=== PATIENT | female | born 1970 | race Caucasian/White ===

== ENCOUNTER → 2017-07-14 | Outpatient (REF) ==
[~2017-07-14] MED LIST: MULT1CHW26 PO
== END ==
LOC: M LAB 14:12
PROVIDERS: ATTEND Nurse Practitioner Adult Health
DX: Z00.00 Encounter for general adult medical examination without abnormal findings (principal)

== ENCOUNTER 2017-09-07 09:59 | Emergency (ER) | payer OTHER ==
[2017-09-07] MEDS: NS 1,000 ML IV (11:20)
[2017-09-07 11:27] LABS: BASO % 0.4 % (0.0-1.0); EOS # 0.1 10^3/uL (0.0-0.50); EOS % 1.6 % (0.0-3.0); HEMATOCRIT 39.5 % (36.0-47.0); HEMOGLOBIN 13.4 g/dl (12.0-16.0); IMMATURE GRANULOCYTE % 0.3 % (0-0); LYMPH # 1.7 10^3/uL (1.5-4.5); LYMPH % 23.1 % (24.0-44.0); MEAN CORPUSCULAR HEMOGLOBIN 29.9 pg (27.0-33.0); MEAN CORPUSCULAR HGB CONC 33.9 g/dl (32.0-36.5); MEAN CORPUSCULAR VOLUME 88.2 fl (80.0-96.0); MONO # 0.4 10^3/uL (0.0-0.8); MONO % 5.5 % (0.0-5.0); NEUTROPHILS # 5.2 10^3/uL (1.8-7.7); NEUTROPHILS % 69.1 % (36.0-66.0); PLATELET COUNT, AUTOMATED 217 10^3/uL (150-450); RED BLOOD COUNT 4.48 10^6/uL (4.00-5.40); RED CELL DISTRIBUTION WIDTH 12.6 % (11.5-14.5); WHITE BLOOD COUNT 7.5 10^3/uL (4.0-10.0)
[2017-09-07 11:42] LABS: D-DIMER QUANT 533.4 ng/ml (<500)
[2017-09-07 11:49] LABS: CPK CREATINE PHOSPHOKINASE 57 U/L (26-192); TROPONIN I < 0.02 NG/ML (< 0.10)
[2017-09-07 11:51] LABS: MB/CK RELATIVE INDEX 1.75 (< OR =4)
[2017-09-07 11:55] LABS: ANION GAP 5 MEQ/L (8-16); BLOOD UREA NITROGEN 16 MG/DL (7-18); CALCIUM LEVEL 9.1 MG/DL (8.5-10.1); CARBON DIOXIDE LEVEL 30 MEQ/L (21-32); CHLORIDE LEVEL 107 MEQ/L (98-107); CREATININE FOR GFR 0.73 MG/DL (0.55-1.02); GLOMERULAR FILTRATION RATE > 60.0 (>58); GLUCOSE, FASTING 84 MG/DL (70-105); MAGNESIUM LEVEL 2.1 MG/DL (1.8-2.4); POTASSIUM SERUM 4.3 MEQ/L (3.5-5.1); SODIUM LEVEL 142 MEQ/L (136-145)
[2017-09-07] MEDS ORDERED: ISOVUE-370 76% 100ML VIAL (Q9967) As Ordered (12:28)
[2017-09-07 16:32] LABS: CPK CREATINE PHOSPHOKINASE 51 U/L (26-192); MB/CK RELATIVE INDEX 1.96 (< OR =4); TROPONIN I < 0.02 NG/ML (< 0.10)
== END 2017-09-07 17:02 | disposition home or self-care (01) ==
LOC: M ED 09:59
DX: R55 Syncope and collapse (principal); J45.909 Unspecified asthma, uncomplicated; Z88.8 Allergy status to other drugs, medicaments and biological substances; Z98.0 Intestinal bypass and anastomosis status; Z86.69 Personal history of other diseases of the nervous system and sense organs; Z98.890 Other specified postprocedural states
CPT/HCPCS: Q9967

== ENCOUNTER → 2018-01-05 | Outpatient (CLI) | payer OTHER | LOC: M SLEEP HO 08:53 | DX: R40.0 Somnolence (principal); R06.83 Snoring | CPT/HCPCS: G0399 ==

== ENCOUNTER 2018-02-10 18:31 | Emergency (ER) | payer OTHER ==
[2018-02-10] MEDS: NORCO, ANEXSIA 5/325MG TABLET (HYDROcodone/ACETAMINOPHEN) PO (22:52)
== END 2018-02-10 23:06 | disposition home or self-care (01) ==
LOC: M ED 18:31
DX: S50.01XA Contusion of right elbow, initial encounter (principal); S63.502A Unspecified sprain of left wrist, initial encounter; S80.02XA Contusion of left knee, initial encounter; W01.0XXA Fall on same level from slipping, tripping and stumbling without subsequent striking against object, initial encounter; Y92.89 Other specified places as the place of occurrence of the external cause; R56.9 Unspecified convulsions; Z79.899 Other long term (current) drug therapy; F17.200 Nicotine dependence, unspecified, uncomplicated; Z98.84 Bariatric surgery status
CPT/HCPCS: 73080

== ENCOUNTER 2018-02-12 12:40 | Emergency (ER) | payer OTHER | END 2018-02-12 17:29 | disposition home or self-care (01) | LOC: M ED 12:40 | DX: S89.92XA Unspecified injury of left lower leg, initial encounter (principal); W01.0XXA Fall on same level from slipping, tripping and stumbling without subsequent striking against object, initial encounter; Y92.89 Other specified places as the place of occurrence of the external cause; J45.909 Unspecified asthma, uncomplicated; K21.9 Gastro-esophageal reflux disease without esophagitis; I10 Essential (primary) hypertension; R56.9 Unspecified convulsions; Z98.84 Bariatric surgery status; Z88.8 Allergy status to other drugs, medicaments and biological substances; Z79.899 Other long term (current) drug therapy | CPT/HCPCS: 99283 ==

== ENCOUNTER → 2018-02-16 | Outpatient (CLI) | payer OTHER | LOC: M SLEEP 20:16 | DX: G47.33 Obstructive sleep apnea (adult) (pediatric) (principal); G47.61 Periodic limb movement disorder | CPT/HCPCS: 95811 ==

== ENCOUNTER → 2018-03-22 | Outpatient (CLI) | payer OTHER | LOC: M RAD 06:25 | DX: S83.232A Complex tear of medial meniscus, current injury, left knee, initial encounter (principal); M25.352 Other instability, left hip; X58.XXXA Exposure to other specified factors, initial encounter; Y92.9 Unspecified place or not applicable; M22.42 Chondromalacia patellae, left knee; M25.462 Effusion, left knee | CPT/HCPCS: 73721 ==

== ENCOUNTER 2018-06-20 08:20 | Emergency (ER) | payer SELFPAY, OTHER | END 2018-06-20 09:10 | disposition home or self-care (01) | LOC: M ED 08:20 | DX: R21 Rash and other nonspecific skin eruption (principal) | CPT/HCPCS: 99282 ==

== ENCOUNTER → 2018-06-20 | Outpatient (REF) | payer SELFPAY | LOC: M LAB REF 15:53 | DX: R21 Rash and other nonspecific skin eruption (principal) | CPT/HCPCS: 87252 ==

== ENCOUNTER → 2018-06-29 | Outpatient (CLI) | payer OTHER ==
[2018-06-29 14:59] LABS: ANION GAP 7 MEQ/L (8-16); BLOOD UREA NITROGEN 15 MG/DL (7-18); CALCIUM LEVEL 9.5 MG/DL (8.5-10.1); CARBON DIOXIDE LEVEL 29 MEQ/L (21-32); CHLORIDE LEVEL 104 MEQ/L (98-107); CREATININE FOR GFR 1.03 MG/DL (0.55-1.30); GLOMERULAR FILTRATION RATE > 60.0 (>58); GLUCOSE, FASTING 79 MG/DL (70-100); POTASSIUM SERUM 4.4 MEQ/L (3.5-5.1); SODIUM LEVEL 140 MEQ/L (136-145)
== END ==
LOC: M LAB 14:09
DX: Z01.818 Encounter for other preprocedural examination (principal)
CPT/HCPCS: 80048

== ENCOUNTER → 2019-01-01 | Outpatient (REF) | payer OTHER ==
[~2019-01-01] MED LIST changes: +HYDR-3715 PO; +HYDR25OIN TOP; +VENL75CA47; +VITA50005
[2019-01-01 16:30] LABS: BASO # 0.1 10^3/uL (0.0-0.2); BASO % 0.7 % (0.0-1.0); EOS # 0.3 10^3/uL (0.0-0.50); EOS % 3.6 % (0.0-3.0); HEMATOCRIT 42.9 % (36.0-47.0); HEMOGLOBIN 13.9 g/dl (12.0-15.5); LYMPH # 2.7 10^3/uL (1.5-4.5); LYMPH % 36.5 % (24.0-44.0); MEAN CORPUSCULAR HEMOGLOBIN 29.2 pg (27.0-33.0); MEAN CORPUSCULAR HGB CONC 32.4 g/dl (32.0-36.5); MEAN CORPUSCULAR VOLUME 90.1 fl (80.0-96.0); MONO # 0.5 10^3/uL (0.0-0.8); MONO % 6.6 % (0.0-5.0); NEUTROPHILS # 3.8 10^3/uL (1.8-7.7); NEUTROPHILS % 52.3 % (36.0-66.0); PLATELET COUNT, AUTOMATED 230 10^3/uL (150-450); RED BLOOD COUNT 4.76 10^6/uL (4.00-5.40); WHITE BLOOD COUNT 7.3 10^3/uL (4.0-10.0)
[2019-01-01 16:40] LABS: C REACTIVE PROTEIN QUANTITATIV < 0.30 MG/DL (0.00-0.30); RHEUMATOID FACTOR QUANT < 10.0 IU/ML (<15.0); URIC ACID 3.5 MG/DL (2.6-6.0)
[2019-01-01 19:08] LABS: ERYTHROCYTE SEDIMENTATION RATE 8 mm/hr (0-20)
[2019-01-03 14:52] LABS: ANTINUCLEAR ANTIBODIES DIRECT Negative (Negative); Lyme Disease IgG/IgM Antibodie <0.91 ISR (0.00-0.90); Lyme Disease IgM Ab Quantitati <0.80 index (0.00-0.79)
== END ==
LOC: M LABDRAW1 15:51
PROVIDERS: ATTEND Physician Assistant Surgical
DX: S83.232D Complex tear of medial meniscus, current injury, left knee, subsequent encounter (principal)

== ENCOUNTER → 2019-01-31 | Outpatient (CLI) | payer OTHER ==
[~2019-01-31] MED LIST changes: +DIFL150T PO; +E-Z-GAS II EFFERVESCENT PACKET (SODIUM BICARB./CITRIC ACID/SIMETHICONE) As Ordered ONE; +E-Z-HD 98% w/w 340GM SUSP BTL As Ordered ONE; +E-Z-PAQUE 96% w/w SUSP 176GM BTL As Ordered ONE; +LIDO5DIS41 TOP; +MEDR4PAK PO; +NAPR-837 PO; +VALI5TAB PO
--- NOTE | 2019-01-31 17:02 | REP ---
Examination Requested: Esophagram Barium Swallow Reason For Exam/Comment: Gastroesophageal reflux disease Esophagram: The procedure was performed RAJENDRA Zepeda, under the direct supervision of Dr. Flynn. The images were reviewed with Dr. Flynn. A single PA chest x-ray is submitted as a scout sniper film. The superior mediastinal structures are midline. The heart size is within normal limits. The lungs are clear. Liquid barium and gas producing granules were given in the erect position as well as liquid barium in the prone oblique position, in order to perform a double contrast esophagram examination. Oral and pharyngeal stages of the examination were unremarkable. Esophageal transport is efficient and there is no esophagitis, stricture, or mucosal ring noted. There is a small hiatal hernia noted. Gastroesophageal reflux was not appreciated throughout the course of the exam . Impression: 1. Small hiatal hernia was noted. 0.4 minutes of fluoroscopy time was utilized for this procedure. Reviewed by RAJENDRA Amador 01/31/2019 04:50 P Electronically Signed by Eladio Flynn MD 01/31/2019 04:53 P
== END ==
LOC: M RAD 09:35
PROVIDERS: ATTEND Nurse Practitioner Family
DX: Z98.84 Bariatric surgery status (principal)

== ENCOUNTER 2019-02-02 08:52 | Emergency (ER) | payer OTHER ==
[~2019-02-02] VITALS: Ht 165.1 cm; Wt 107.0 kg
[~2019-02-02 08:52] MED LIST changes: -DIFL150T PO; -E-Z-GAS II EFFERVESCENT PACKET (SODIUM BICARB./CITRIC ACID/SIMETHICONE) As Ordered ONE; -E-Z-HD 98% w/w 340GM SUSP BTL As Ordered ONE; -E-Z-PAQUE 96% w/w SUSP 176GM BTL As Ordered ONE; -LIDO5DIS41 TOP; -MEDR4PAK PO; -NAPR-837 PO; -VALI5TAB PO
[2019-02-02] MEDS ORDERED: diazePAM 5 MG TAB PO ONE (09:30)
[2019-02-02] MEDS ORDERED: KETOROLAC 30 MG/ML VIAL (J1885) IM ONE (09:30)
[2019-02-02] MEDS ORDERED: LIDOCAINE 5% (LIDODERM) PATCH TD ONE (09:30)
--- NOTE | 2019-02-02 09:50 | REP ---
Clinical: Trauma with cervical pain . Technique: Axial noncontrast images from the skull base to the thoracic inlet with coronal and sagittal re-formations Findings: Normal alignment and lordosis is maintained. Cervical vertebral bodies including transverse processes and spinous processes are intact and there is no evidence for acute fracture / compression injury or subluxation. Moderate multilevel degenerative changes including endplate sclerosis, minimal disc space narrowing and osteophytosis predominantly noted at C5-6 and C6-7. Spinal canal is patent. Posterior elements are intact. Paravertebral soft tissues are normal. Impression: Moderate multilevel degenerative changes. No evidence for acute pathology or trauma/injury. Electronically Signed by Chetan Blank MD 02/02/2019 09:41 A
--- NOTE | 2019-02-02 09:52 | REP ---
Clinical: Trauma with thoracic pain . Technique: Axial noncontrast images of the thoracic spine with coronal and sagittal re-formations Findings: Normal alignment and kyphosis is maintained. Thoracic vertebral bodies including transverse processes and spinous processes are intact and there is no evidence for acute fracture / compression injury or subluxation. Mild age-related degenerative changes suggested. Spinal canal is patent. Posterior elements are intact. Paravertebral soft tissues are normal. Impression: No evidence for acute pathology or trauma/injury. Electronically Signed by Chetan Blank MD 02/02/2019 09:43 A
--- NOTE | 2019-02-02 09:54 | REP ---
Clinical: Trauma with lumbar pain . Technique: Axial noncontrast images from T11 through mid sacrum with coronal and sagittal re-formations Findings: Normal alignment and lordosis is maintained. Lumbar vertebral bodies including transverse processes and spinous processes are intact and there is no evidence for acute fracture / compression injury or subluxation. Mild age-related changes noted. Spinal canal is patent. Posterior elements are intact. Paravertebral soft tissues are normal. Impression: Age-appropriate lumbosacral spine CT. No evidence for acute pathology or trauma/injury. Electronically Signed by Chetan Blank MD 02/02/2019 09:45 A
[2019-02-02] MEDS ORDERED: LIDO5DIS41 TOP (10:07)
[2019-02-02] MEDS ORDERED: MEDR4PAK PO (10:07)
[2019-02-02] MEDS ORDERED: NAPR-837 PO (10:07)
[2019-02-02] MEDS ORDERED: VALI5TAB PO ×2 (10:07→10:25)
[2019-02-02] MEDS ORDERED: DIFL150T PO (10:17)
[2019-02-02 10:20] VITALS: BP 118/68
== END 2019-02-02 10:31 | disposition home or self-care (01) ==
LOC: M ED 08:52
DX: M47.817 Spondylosis without myelopathy or radiculopathy, lumbosacral region (principal); M47.812 Spondylosis without myelopathy or radiculopathy, cervical region; M47.814 Spondylosis without myelopathy or radiculopathy, thoracic region; M62.830 Muscle spasm of back; W50.0XXA Accidental hit or strike by another person, initial encounter; Y92.129 Unspecified place in nursing home as the place of occurrence of the external cause; Y99.0 Civilian activity done for income or pay; I10 Essential (primary) hypertension; K21.9 Gastro-esophageal reflux disease without esophagitis; Z98.84 Bariatric surgery status; Z88.8 Allergy status to other drugs, medicaments and biological substances
CPT/HCPCS: 72125; 72128; 72131; 96372; 99283; J1885

== ENCOUNTER 2019-04-27 23:20 | Emergency (ER) | payer OTHER ==
[~2019-04-27] VITALS: Ht 167.6 cm; Wt 104.5 kg
[~2019-04-27 23:20] MED LIST changes: +DIFL150T PO; +LIDO5DIS41 TOP; +MEDR4PAK PO; +NAPR-837 PO; +VALI5TAB PO
[2019-04-27] MEDS ORDERED: VENL75TA2 PO (23:23)
[2019-04-27] MEDS ORDERED: ONDANSETRON 4MG/2ML VIAL (J2405) As Ordered ONE (23:58)
[2019-04-27] MEDS ORDERED: MORPHINE 4 MG/ML 1ML VIAL/SYRINGE (J2270) As Ordered ONE (23:58)
[2019-04-28] MEDS ORDERED: MORPHINE 4 MG/ML 1ML VIAL/SYRINGE (J2270) IV ONE ×3 (00:15→04:15)
[2019-04-28] MEDS ORDERED: ONDANSETRON 4MG/2ML VIAL (J2405) IV ONE (00:15)
[2019-04-28] MEDS ORDERED: MORPHINE 2 MG/ML 1ML SYRINGE (J2270) IV ONE ×2 (00:30→02:30)
[2019-04-28] MEDS ORDERED: PERCOCET 5MG/325MG TAB PO ONE (02:30)
[2019-04-28 04:00] VITALS: BP 117/59
--- NOTE | 2019-04-28 10:52 | REP ---
CT of the left ankle: Comparison is the plain film study performed earlier this same evening. Axial images are acquired helical scanning and a reformatted sagittal and coronal projections. There is soft tissue edema laterally. There is a cortical avulsion of the talus laterally distal to the tip of the fibula. There is a bone island in the calcaneus. No other fractures are identified. There is no dislocation. Mineralization is normal. There are no calcifications. Impression: Cortical avulsion of the talus laterally. There is adjacent soft tissue edema. Electronically Signed by Eladio Randolph MD 04/28/2019 09:52 A
--- NOTE | 2019-04-28 10:52 | REP ---
Ankle five views: There is soft tissue edema laterally. The patient had an ankle CT performed later this same evening. On the ankle CT there was an avulsion fracture of the talus laterally. The. This is faintly visible on the this plain film study. The mortise is symmetric. Mineralization is normal. There is no other fracture or dislocation. There are no calcifications or foreign bodies. Impression: Cortical avulsion of the talus laterally. Electronically Signed by Eladio Randolph MD 04/28/2019 09:48 A
== END 2019-04-28 04:19 | disposition home or self-care (01) ==
LOC: M ED 23:20
DX: S92.155A Nondisplaced avulsion fracture (chip fracture) of left talus, initial encounter for closed fracture (principal); X50.1XXA Overexertion from prolonged static or awkward postures, initial encounter; Y92.098 Other place in other non-institutional residence as the place of occurrence of the external cause; F41.9 Anxiety disorder, unspecified; F32.9 Major depressive disorder, single episode, unspecified; F17.200 Nicotine dependence, unspecified, uncomplicated; Z79.899 Other long term (current) drug therapy
CPT/HCPCS: 73610; 73700; 96374; 96375; 96376; 99284; J2270; J2405

== ENCOUNTER 2019-04-29 17:56 | Emergency (ER) | payer OTHER ==
[~2019-04-29] VITALS: Ht 167.6 cm; Wt 104.5 kg
[~2019-04-29 17:56] MED LIST changes: +VENL75TA2 PO
[2019-04-29] MEDS ORDERED: PERCOCET 5MG/325MG TAB PO ONE (19:30)
[2019-04-29] MEDS ORDERED: MORPHINE 10 MG/ML 1ML VIAL (J2270) IM ONE (19:30)
[2019-04-29] MEDS ORDERED: OXYCODONE/APAP 5MG/325MG(BULK FOR ED) 1 TABLET PO ONE (20:45)
[2019-04-29 21:17] VITALS: BP 120/55
--- NOTE | 2019-04-30 01:36 | REP ---
Clinical: Talar fracture. Technique: AP and lateral views of the left foot. Findings: Talar fractures difficult to identified due to positioning and overlying bandage material/cast material. No other fracture or dislocation is identified or suspected. Impression: Incomplete evaluation of known talar fracture. Electronically Signed by Chetan Blank MD 04/30/2019 01:27 A
== END 2019-04-29 21:18 | disposition home or self-care (01) ==
LOC: M ED 17:56
DX: S92.102A Unspecified fracture of left talus, initial encounter for closed fracture (principal); X58.XXXA Exposure to other specified factors, initial encounter; Y92.9 Unspecified place or not applicable; Y93.9 Activity, unspecified; Y99.9 Unspecified external cause status; Z79.899 Other long term (current) drug therapy; Z88.8 Allergy status to other drugs, medicaments and biological substances
CPT/HCPCS: 73620; 96372; 99284; J2270

== ENCOUNTER → 2019-05-29 | Outpatient (CLI) | payer OTHER ==
[2019-05-29 14:31] LABS: BLOOD UREA NITROGEN 12 MG/DL (7-18); CALCIUM LEVEL 9.6 MG/DL (8.5-10.1); CARBON DIOXIDE LEVEL 26 MEQ/L (21-32); CHLORIDE LEVEL 106 MEQ/L (98-107); CREATININE FOR GFR 0.83 MG/DL (0.55-1.30); GLOMERULAR FILTRATION RATE > 60.0 (>58); GLUCOSE, FASTING 72 MG/DL (70-100); POTASSIUM SERUM 4.4 MEQ/L (3.5-5.1); SODIUM LEVEL 142 MEQ/L (136-145)
[2019-05-29 14:43] LABS: HEMOGLOBIN A1c 5.3 %
== END ==
LOC: M LAB 12:51
PROVIDERS: ATTEND Family Medicine
DX: R73.03 Prediabetes (principal)

== ENCOUNTER → 2019-07-29 | Outpatient (REF) | payer SELFPAY ==
[2019-07-29 13:16] LABS: BASO % 0.8 % (0.0-1.0); EOS # 0.1 10^3/uL (0.0-0.5); EOS % 2.8 % (0.0-3.0); HEMATOCRIT 45.4 % (36.0-47.0); HEMOGLOBIN 14.6 g/dl (12.0-15.5); LYMPH # 1.8 10^3/uL (1.5-5.0); LYMPH % 36.3 % (24.0-44.0); MEAN CORPUSCULAR HEMOGLOBIN 30.3 pg (27.0-33.0); MEAN CORPUSCULAR HGB CONC 32.2 g/dl (32.0-36.5); MEAN CORPUSCULAR VOLUME 94.2 fl (80.0-96.0); MONO # 0.5 10^3/uL (0.0-0.8); MONO % 10.9 % (0.0-5.0); NEUTROPHILS # 2.4 10^3/uL (1.5-8.5); PLATELET COUNT, AUTOMATED 214 10^3/uL (150-450); RED BLOOD COUNT 4.82 10^6/uL (4.00-5.40)
[2019-07-29 13:22] LABS: ALBUMIN 3.7 GM/DL (3.2-5.2); ALT/SGPT 25 U/L (12-78); BILIRUBIN,TOTAL 0.3 MG/DL (0.2-1.0); BLOOD UREA NITROGEN 16 MG/DL (7-18); CARBON DIOXIDE LEVEL 29 MEQ/L (21-32); CHLORIDE LEVEL 111 MEQ/L (98-107); CHOLESTEROL LEVEL 228 MG/DL (<200); CHOLESTEROL RISK RATIO 3.562 (<5); CREATININE FOR GFR 0.76 MG/DL (0.55-1.30); FREE T4 0.92 NG/DL (0.76-1.46); GLOMERULAR FILTRATION RATE > 60.0 (>58); GLUCOSE, FASTING 87 MG/DL (70-100); HDL CHOLESTEROL 64 MG/DL (>40); LDL CHOLESTEROL 147 MG/DL (<100); NON-HDL-C 164 MG/DL; POTASSIUM SERUM 4.5 MEQ/L (3.5-5.1); SODIUM LEVEL 147 MEQ/L (136-145); TOTAL PROTEIN 7.1 GM/DL (6.4-8.2); TRIGLYCERIDES LEVEL 87 MG/DL (<150)
[2019-07-29 14:22] LABS: HEMOGLOBIN A1c 5.8 %
== END ==
LOC: M LAB REF 12:31
PROVIDERS: ATTEND Nurse Practitioner Family
DX: Z13.9 Encounter for screening, unspecified (principal)

== ENCOUNTER → 2019-09-26 | Outpatient (CLI) | payer OTHER ==
[2019-09-26 14:04] LABS: INR 1.05; PROTHROMBIN TIME 13.4 SECONDS (11.8-14.0)
[2019-09-26 14:05] LABS: PARTIAL THROMBOPLASTIN TIME 28.3 SECONDS (25.0-38.4)
[2019-09-30 00:08] LABS: HLA CLASS 1 ANTIBODY Negative (Negative); IIb/IIIa ANTIBODY Negative (Negative); Ia/IIa ANTIBODY Negative (Negative); Ib/IX ANTIBODY Negative (Negative)
== END ==
LOC: M LAB 12:32
PROVIDERS: ATTEND Physician Assistant
DX: Z01.812 Encounter for preprocedural laboratory examination (principal); M47.22 Other spondylosis with radiculopathy, cervical region

== ENCOUNTER → 2019-10-17 | Outpatient (CLI) | payer OTHER ==
[2019-10-17 15:17] LABS: PLATELET COUNT, AUTOMATED 248 10^3/uL (150-450)
== END ==
LOC: M LAB 14:07
PROVIDERS: ATTEND Physical Medicine & Rehabilitation
DX: M47.22 Other spondylosis with radiculopathy, cervical region (principal)

== ENCOUNTER → 2019-10-29 | Outpatient (REF) | payer OTHER, MEDICAID ==
[2019-10-29 17:47] LABS: BASO % 0.7 % (0.0-1.0); EOS # 0.2 10^3/uL (0.0-0.5); EOS % 3.2 % (0.0-3.0); HEMATOCRIT 43.7 % (36.0-47.0); HEMOGLOBIN 14.4 g/dl (12.0-15.5); LYMPH # 2.5 10^3/uL (1.5-5.0); LYMPH % 44.3 % (24.0-44.0); MEAN CORPUSCULAR HEMOGLOBIN 29.8 pg (27.0-33.0); MEAN CORPUSCULAR VOLUME 90.3 fl (80.0-96.0); MONO # 0.3 10^3/uL (0.0-0.8); MONO % 6.1 % (0.0-5.0); NEUTROPHILS # 2.6 10^3/uL (1.5-8.5); NEUTROPHILS % 45.5 % (36.0-66.0); PLATELET COUNT, AUTOMATED 221 10^3/uL (150-450); RED BLOOD COUNT 4.84 10^6/uL (4.00-5.40); WHITE BLOOD COUNT 5.6 10^3/uL (4.0-10.0)
[2019-10-29 18:51] LABS: HEMOGLOBIN A1c 5.8 %
[2019-10-29 18:53] LABS: ALBUMIN 3.7 GM/DL (3.2-5.2); ALT/SGPT 19 U/L (12-78); BILIRUBIN,TOTAL 0.4 MG/DL (0.2-1.0); BLOOD UREA NITROGEN 16 MG/DL (7-18); CARBON DIOXIDE LEVEL 29 MEQ/L (21-32); CHLORIDE LEVEL 106 MEQ/L (98-107); CHOLESTEROL LEVEL 226 MG/DL (<200); CHOLESTEROL RISK RATIO 3.645 (<5); CREATININE FOR GFR 0.77 MG/DL (0.55-1.30); GLOMERULAR FILTRATION RATE > 60.0 (>58); GLUCOSE, FASTING 83 MG/DL (70-100); HDL CHOLESTEROL 62 MG/DL (>40); LDL CHOLESTEROL 150 MG/DL (<100); NON-HDL-C 164 MG/DL; POTASSIUM SERUM 4.6 MEQ/L (3.5-5.1); SODIUM LEVEL 141 MEQ/L (136-145); TRIGLYCERIDES LEVEL 69 MG/DL (<150)
== END ==
LOC: M LAB REF 16:43
PROVIDERS: ATTEND Nurse Practitioner Family
DX: Z13.9 Encounter for screening, unspecified (principal); E78.5 Hyperlipidemia, unspecified; R07.9 Chest pain, unspecified; R73.03 Prediabetes

== ENCOUNTER 2019-11-07 14:52 | Inpatient (IN) | payer MEDICAID, OTHER ==
[~2019-11-07] VITALS: Ht 165.1 cm; Wt 109.5 kg
[2019-11-07 16:34] LABS: BASO # 0.1 10^3/uL (0.0-0.2); BASO % 0.6 % (0.0-1.0); EOS # 0.1 10^3/uL (0.0-0.5); EOS % 1.4 % (0.0-3.0); HEMATOCRIT 41.5 % (36.0-47.0); HEMOGLOBIN 13.9 g/dl (12.0-15.5); LYMPH # 1.6 10^3/uL (1.5-5.0); LYMPH % 19.2 % (24.0-44.0); MEAN CORPUSCULAR HEMOGLOBIN 30.3 pg (27.0-33.0); MEAN CORPUSCULAR HGB CONC 33.5 g/dl (32.0-36.5); MEAN CORPUSCULAR VOLUME 90.6 fl (80.0-96.0); MONO # 0.6 10^3/uL (0.0-0.8); MONO % 7.4 % (0.0-5.0); NEUTROPHILS # 5.7 10^3/uL (1.5-8.5); NEUTROPHILS % 70.9 % (36.0-66.0); PLATELET COUNT, AUTOMATED 212 10^3/uL (150-450); RED BLOOD COUNT 4.58 10^6/uL (4.00-5.40); WHITE BLOOD COUNT 8.1 10^3/uL (4.0-10.0)
[2019-11-07 16:37] LABS: INR 1.09; PARTIAL THROMBOPLASTIN TIME 25.1 SECONDS (25.0-38.4); PROTHROMBIN TIME 13.8 SECONDS (11.8-14.0)
--- NOTE | 2019-11-07 16:41 | REPVR ---
PROCEDURE INFORMATION: Exam: CT Cervical Spine Without Contrast Exam date and time: 11/07/2019 4:21 PM Age: 49 years old Clinical indication: Other: Syncope TECHNIQUE: Imaging protocol: Computed tomography images of the cervical spine without contrast. Axial, coronal and sagittal reformatted images were created and reviewed. Radiation optimization: All CT scans at this facility use at least one of these dose optimization techniques: automated exposure control; mA and/or kV adjustment per patient size (includes targeted exams where dose is matched to clinical indication); or iterative reconstruction. COMPARISON: CT Spine,cervical w/o contrast 02/02/2019 9:16 AM FINDINGS: Vertebrae: Osteopenia. Mild straightening of the normal cervical lordosis. Alignment anatomic. No CT evidence of acute fracture, dislocation or subluxation. Vertebral body heights maintained. Discs/Spinal canal/Neural foramina: Mild multilevel spondylosis. No significant spinal canal or neural foraminal stenosis. Soft tissues: Grossly unremarkable. Lungs: Grossly unremarkable. IMPRESSION: 1. No CT evidence of acute cervical spine traumatic injury. 2. Additional findings, as above. Electronically signed by: Davin Melton On 11/07/2019 16:41:29 PM
--- NOTE | 2019-11-07 16:44 | REPVR ---
PROCEDURE INFORMATION: Exam: CT Head Without Contrast Exam date and time: 11/07/2019 4:21 PM Age: 49 years old Clinical indication: Syncope and collapse TECHNIQUE: Imaging protocol: Computed tomography of the head without contrast. Axial and coronal reformatted images were created and reviewed. Radiation optimization: All CT scans at this facility use at least one of these dose optimization techniques: automated exposure control; mA and/or kV adjustment per patient size (includes targeted exams where dose is matched to clinical indication); or iterative reconstruction. COMPARISON: CT Head without contrast 12/26/2014 1:09 AM FINDINGS: Brain: No CT evidence of acute intracranial hemorrhage or acute territorial infarction. No significant mass effect or midline shift. Basal cisterns patent. Ventricles: Normal in size and configuration. Bones/joints: No acute osseous abnormality. Sinuses: Grossly unremarkable. Mastoid air cells: Grossly unremarkable. Soft tissues: Grossly unremarkable. IMPRESSION: No CT evidence of acute intracranial pathology. Electronically signed by: Davin Melton On 11/07/2019 16:44:16 PM
[2019-11-07 16:59] LABS: HCG, SERUM QUALITATIVE NEGATIVE (NEGATIVE)
[2019-11-07 17:09] LABS: CK-MB VALUE MASS < 1.0 NG/ML (<3.6); CPK CREATINE PHOSPHOKINASE 55 U/L (26-192); ETHYL ALCOHOL (ETHANOL) < 0.003 % (0.000-0.010); MB/CK RELATIVE INDEX 1.82 (< OR =4); TROPONIN I < 0.02 NG/ML (< 0.10)
[2019-11-07 17:14] LABS: ACETAMINOPHEN LEVEL < 2.0 UG/ML (10.0-30.0); BLOOD UREA NITROGEN 12 MG/DL (7-18); CARBON DIOXIDE LEVEL 26 MEQ/L (21-32); CHLORIDE LEVEL 109 MEQ/L (98-107); CREATININE FOR GFR 0.86 MG/DL (0.55-1.30); GLOMERULAR FILTRATION RATE > 60.0 (>58); GLUCOSE, FASTING 92 MG/DL (70-100); POTASSIUM SERUM 4.1 MEQ/L (3.5-5.1); SALICYLATE LEVEL 3.1 MG/DL (5.0-30.0); SODIUM LEVEL 141 MEQ/L (136-145)
[2019-11-07] MEDS ORDERED: NS 1,000 ML IV ONE (17:15)
--- NOTE | 2019-11-07 18:47 | REP ---
CHEST, SINGLE VIEW: There is no evidence of acute infiltrate. No pleural effusion is seen. The heart is normal in size. The mediastinal silhouette is unremarkable. The visualized osseous structures are intact. IMPRESSION: No acute pulmonary disease. Electronically Signed by Eladio Flynn MD 11/08/2019 05:05 P
[2019-11-07 19:10] LABS: ALBUMIN 3.9 GM/DL (3.2-5.2); ALT/SGPT 30 U/L (12-78); BILIRUBIN,DIRECT 0.1 MG/DL (0.0-0.2); BILIRUBIN,TOTAL 0.2 MG/DL (0.2-1.0); TOTAL PROTEIN 6.8 GM/DL (6.4-8.2)
[2019-11-07] MEDS ORDERED: CHAN1PAK11 PO (19:47)
[2019-11-07] MEDS ORDERED: DULO1CAP6 PO (19:47)
[2019-11-07] MEDS ORDERED: DICL1GEL3 TOP (19:47)
[2019-11-07] MEDS ORDERED: ATOR1TAB21 PO (19:47)
[2019-11-07] MEDS ORDERED: CIPRODEX AD (19:47)
[2019-11-07 19:53] LABS: AMPHETAMINES LEVEL URINE NEGATIVE (NEGATIVE); BARBITURATES URINE NEGATIVE (NEGATIVE); BENZODIAZEPINES URINE NEGATIVE (NEGATIVE); CANNABINOIDS URINE NEGATIVE (NEGATIVE); COCAINE METABOLITE URINE NEGATIVE (NEGATIVE); METHADONE URINE NEGATIVE (NEGATIVE); OPIATES URINE NEGATIVE (NEGATIVE); PHENCYCLIDINE URINE NEGATIVE (NEGATIVE)
--- NOTE | 2019-11-07 20:14 | HPEPDOC ---
[facility] Medical History & Physical Date of Admission Nov 07, 2019 Date of Service: Nov 07, 2019 Other Provider Millicent VALDES Attending Physician: ZAHRAA MENDIETA MD History and Physical TIME OF SERVICE: 9:38 PM CHIEF COMPLAINT: Syncope HISTORY OF PRESENT ILLNESS: This is a 49-year-old female has a history of gastric bypass and has recurrent episodes of dumping syndrome. Earlier on today, while having a bowel movement, she passed out. Her daughter found her in the restroom. She's not sure if she hit her head and cannot provide specific details about the events prior to the loss of consciousness and how long she may have been unconscious for. According to her she had been complaining of mid abdominal pain earlier in the day. She denies having nausea or chest pain but added that she has palpitations frequently. REVIEW OF SYSTEMS: Limited because of the patient's lapse of memory PAST MEDICAL/ SURGICAL HISTORY: Chronic Diastolic dysfunction. History of bradycardia History of recurrent syncope Gastric bypass Remote history of seizure disorder since/pseudoseizures Right oophorectomy and salpingectomy and incidental appendectomy Total abdominal hysterectomy with left salpingo-oophorectomy Colon polypectomy Tubal ligation Obesity SOCIAL HISTORY: Former smoker FAMILY HISTORY: CAD IDDM. Rheumatoid arthritis Depression Lipoma Colon cancer Non-alcoholic liver cirrhosis Celiac disease GERD Hypertension ALLERGIES: Please see below. HOME MEDICATIONS: Please see below. PHYSICAL EXAMINATION: VITAL SIGNS: Please see below. GEN: well-nourished / well developed/ NAD INTEGUMENT: not flushed/ not jaundice HEENT: NCAT / lips acyanotic /mucus membranes moist and pink CVS: RRR/NMRG LUNGS: clear to auscultation bilaterally on room air ABDOMEN: Contour (obese) / there are no masses or lesions / soft & not tender with palpation NEURO: CN 2-12 are grossly intact / speech is not dysarthric PSYCH: alert and oriented to person place and time/ able to understand and follow all commands / has a flat affect LABORATORY DATA: See below. IMAGING: CT head " IMPRESSION: No CT evidence of acute intracranial pathology. " Chest xray " IMPRESSION:No acute pulmonary disease. CT Cervical Spine "IMPRESSION: 1. No CT evidence of acute cervical spine traumatic injury. 2. Additional findings, as above. " MICROBIOLOGY: Please see below. ASSESSMENT: Ms. Francois is a 49-year-old with a past medical history of chronic diastolic dysfunction, history of bradycardia, gastric bypass with dumping syndrome, and multiple surgeries, who is admitted for evaluation of syncope and bradycardia. PLAN: 1. Syncope Possibly vasovagal, as the patient was having a bowel movement just prior to losing consciousness Her troponin and hemoglobin are unremarkable. Her EKG showed sinus bradycardia w a HR of 47 EGSYS Score to identify cardiac syncope = 9 to 10 points Plan: admit to PCU /telemetry / f/u orthostats / f/u serial trops / frequent neurochecks 2. Bradycardia She's not on any calcium channel blockers or beta blockers. Her TSH, magnesium, calcium and potassium were within normal limits. I called who agreed with telemetry and said we should call him back if we are able to establish a definitivel relationship between her symptoms and bradycardia; he added that her scheduled nuclear stress test can't be done in the hospital and she can follow up with him in the office. Plan: telemetry/ will ask nursing staff to keep subcutaneous pacers close by/ atropine 0.5 mg IV PRN for HR <30/ f/u serial trops & EKG 3. Chronic Diastolic dysfunction. She is clinically compensated. - Plan: f/u Is and Os DVT PROPHYLAXIS: lovenox DISPOSITION: home after more than 2 midnight's stay Laboratory Data Labs 24H Laboratory Tests 2 11/07/19 16:12: Prothrombin Time 13.8, Prothromb Time International Ratio 1.09, Activated Partial Thromboplast Time 25.1 11/07/19 16:13: Immature Granulocyte % (Auto) 0.5, Neutrophils (%) (Auto) 70.9H, Lymphocytes (%) (Auto) 19.2L, Monocytes (%) (Auto) 7.4H, Eosinophils (%) (Auto) 1.4, Basophils (%) (Auto) 0.6, Neutrophils # (Auto) 5.7, Lymphocytes # (Auto) 1.6, Monocytes # (Auto) 0.6, Eosinophils # (Auto) 0.1, Basophils # (Auto) 0.1, Nucleated Red Blood Cells % (auto) 0.0, Anion Gap 6L, Glomerular Filtration Rate > 60.0, Calcium Level 9.0, Total Bilirubin 0.2, Direct Bilirubin 0.1, Aspartate Amino Transf (AST/SGOT) 17, Alanine Aminotransferase (ALT/SGPT) 30, Alkaline Phosphatase 126H, Total Creatine Kinase 55, Creatine Kinase MB < 1.0, Creatine Kinase MB Relative Index 1.82, Troponin I < 0.02, Total Protein 6.8, Albumin 3.9, Albumin/Globulin Ratio 1.34, Thyroid Stimulating Hormone (TSH) 1.340, Human Chorionic Gonadotropin, Qual NEGATIVE, Salicylates Level 3.1L, Acetaminophen Level < 2.0L, Ethyl Alcohol Level < 0.003 11/07/19 19:08: Urine Opiates Screen NEGATIVE, Urine Methadone Screen NEGATIVE, Urine Barbiturates Screen NEGATIVE, Urine Phencyclidine Screen NEGATIVE, Urine Amphetamines Screen NEGATIVE, Urine Benzodiazepines Screen NEGATIVE, Urine Cocaine Metabolite Screen NEGATIVE, Urine Cannabinoids Screen NEGATIVE CBC/BMP Laboratory Tests 11/07/19 16:13 Home Medications Scheduled Atorvastatin Calcium (Atorvastatin Calcium) 20 Mg Tablet, 20 MG PO DAILY JUST PICKED UP 10/09/19 Ciprofloxacin/Dexamethasone (Ciprodex Otic Suspension) 7.5 Ml Drops.susp, 3 DROP AD DAILY Duloxetine Hcl (Duloxetine HCl) 60 Mg Capsule.dr, 60 MG PO DAILY Varenicline Tartrate (Chantix) 1 Each Tab.ds.pk, 1 ERIC PO ASDIRECTED TAKE 1, 0.5MG TAB, DAILY FOR THREE DAYS, THEN 1, 0.5MG TAB, BID FOR THE NEXT FOUR DAYS. THAN TAKE ONE, 1MG TAB, DAILY Scheduled PRN Diclofenac Sodium (Diclofenac Sodium) 1% 100GM Gel..gram., 4 GM TOP QID PRN for PAIN APPLY TO KNEE Allergies Coded Allergies: phenazopyridine (Verified Allergy, Severe, anaphalxis, 02/02/19) A-FIB/CHADSVASC A-FIB History Current/History of A-Fib/PAF?: No Current PO Anticoag Therapy: No ZAHRAA MENDIETA MD Nov 07, 2019 20:13
[2019-11-07] MEDS ORDERED: ATROPINE SULF 0.4 MG/ML 1ML VIAL (J0461) IV PRN (20:15)
[2019-11-07] MEDS ORDERED: MAALOX 30 ML SUSP *UDC PO PRN (20:15)
[2019-11-07] MEDS ORDERED: MOM 30ML SUSPENSION UDC PO PRN (20:15)
[2019-11-07 20:35] LABS: MAGNESIUM LEVEL 2.2 MG/DL (1.8-2.4)
[2019-11-07] MEDS: DOCUSATE SODIUM 100 MG CAP PO SCH (21:00)
--- NOTE | 2019-11-07 21:17 | ECGEPIP ---
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
--- NOTE | 2019-11-07 21:18 | ECGEPIP ---
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
[2019-11-08] VITALS (7 sets, daily range): BP systolic 97–137; BP diastolic 55–87
[2019-11-08 04:00] LABS: TROPONIN I < 0.02 NG/ML (< 0.10)
[2019-11-08 07:10] LABS: BLOOD UREA NITROGEN 10 MG/DL (7-18); CALCIUM LEVEL 8.7 MG/DL (8.5-10.1); CARBON DIOXIDE LEVEL 27 MEQ/L (21-32); CHLORIDE LEVEL 112 MEQ/L (98-107); CREATININE FOR GFR 0.65 MG/DL (0.55-1.30); GLOMERULAR FILTRATION RATE > 60.0 (>58); GLUCOSE, FASTING 84 MG/DL (70-100); POTASSIUM SERUM 4.2 MEQ/L (3.5-5.1); SODIUM LEVEL 142 MEQ/L (136-145)
[2019-11-08] MEDS: DOCUSATE SODIUM 100 MG CAP PO SCH ×2 (09:00→20:20)
--- NOTE | 2019-11-08 09:29 | IPN ---
DATE: 11/08/2019 Fatuma is a patient of the [facility] admitted to the hospitalist service after having, what sounds like, a vasovagal syncope. She has dumping syndrome after a Johan-en-Y gastric bypass and had a syncopal spell. She apparently was in the midst of a cardiac workup by Dr. Barreto. Has a nuclear stress test schedule for 11/11/2019. He is aware of her admission. She has had no recurrence of symptomatic bradycardia since admission. PHYSICAL EXAMINATION: Pulse between 55 and 70. No orthostatic drop in blood pressure 137/87 standing. She is alert and conversant in no distress. Morbidly obese. Complaining of vertigo with rotation of her head (apparently is treated for vestibular neuritis by her nurse practitioner health care primary care provider last week but did not fill out the prescription for the medication). Lungs clear. Heart regular rhythm. Abdomen soft, nontender. No peripheral edema. Neurological exam nonfocal. LABS: Sodium 142, potassium 4.2, BUN 10, creatinine 0.5, glucose 8.7, TSH 1.3. IMPRESSION: 1. Bradycardia: She is on telemetry. I would recommend she continue telemetry for at least 48 hours. I hope to discharge her Monday or Monday. She has a nuclear stress test Monday. 2. Hyperlipidemia: Continue atorvastatin 20 mg daily 3. She is on Cymbalta 60 mg daily which she should continue. 4. Otitis externa: She has several drops already ordered.
[2019-11-08] MEDS: CIPRODEX OTIC SUSP 7.5ML AD SCH (09:36)
[2019-11-08] MEDS: ATORVASTATIN 20 MG TAB PO SCH (09:36)
[2019-11-08] MEDS: ENOXAPARIN 40 MG/0.4 ML SYRINGE (J1650) SC SCH (09:36)
[2019-11-08] MEDS: DULoxetine 30 MG CAP (CYMBALTA) PO SCH (09:36)
[2019-11-08] MEDS ORDERED: SLF 3 ML SYR IV PRN (10:45)
[2019-11-08] MEDS: SLF 3 ML SYR IV SCH ×2 (14:11→22:20)
[2019-11-09] MEDS: SLF 3 ML SYR IV SCH ×3 (05:33→21:50)
[2019-11-09 06:00] VITALS: BP 123/72
[2019-11-09] MEDS: DOCUSATE SODIUM 100 MG CAP PO SCH ×2 (08:18→20:10)
[2019-11-09] MEDS: DULoxetine 30 MG CAP (CYMBALTA) PO SCH (08:18)
[2019-11-09] MEDS: CIPRODEX OTIC SUSP 7.5ML AD SCH (08:18)
[2019-11-09] MEDS: ATORVASTATIN 20 MG TAB PO SCH (08:18)
[2019-11-09] MEDS: ENOXAPARIN 40 MG/0.4 ML SYRINGE (J1650) SC SCH (08:18)
--- NOTE | 2019-11-09 10:00 | IPN ---
DATE: 11/09/2019 Fatuma has not had any syncope, lightheadedness or weakness so she feels tired in general fashion, but no specific symptoms. Vital signs stable. Slowest heart rate was 50. No significant block on telemetry. Lungs clear. Heart: Regular rhythm. Abdomen: Soft, nontender. No peripheral edema. LABS: Unremarkable. IMPRESSION: Bradycardia. Probably vasovagal episode with underlying bradycardia of unknown etiology. PLAN: Watching her on telemetry another 24 hours, discharge her tomorrow. She has nuclear stress test with cardiology on Monday. The rest of her medical problems are stable.
[2019-11-09 14:00] VITALS: BP 136/73
[2019-11-09 22:00] VITALS: BP 127/77
[2019-11-10 06:00] VITALS: BP 128/75
[2019-11-10] MEDS: SLF 3 ML SYR IV SCH (06:00)
[2019-11-10 06:02] LABS: HEMATOCRIT 39.4 % (36.0-47.0); HEMOGLOBIN 12.9 g/dl (12.0-15.5); MEAN CORPUSCULAR HEMOGLOBIN 29.8 pg (27.0-33.0); MEAN CORPUSCULAR HGB CONC 32.7 g/dl (32.0-36.5); PLATELET COUNT, AUTOMATED 206 10^3/uL (150-450); RED BLOOD COUNT 4.33 10^6/uL (4.00-5.40); WHITE BLOOD COUNT 5.3 10^3/uL (4.0-10.0)
[2019-11-10 06:20] LABS: BLOOD UREA NITROGEN 15 MG/DL (7-18); CALCIUM LEVEL 8.5 MG/DL (8.5-10.1); CARBON DIOXIDE LEVEL 29 MEQ/L (21-32); CHLORIDE LEVEL 109 MEQ/L (98-107); GLOMERULAR FILTRATION RATE > 60.0 (>58); GLUCOSE, FASTING 84 MG/DL (70-100); POTASSIUM SERUM 4.4 MEQ/L (3.5-5.1); SODIUM LEVEL 141 MEQ/L (136-145)
[2019-11-10] MEDS: DULoxetine 30 MG CAP (CYMBALTA) PO SCH (08:32)
[2019-11-10] MEDS: DOCUSATE SODIUM 100 MG CAP PO SCH (08:32)
[2019-11-10] MEDS: ATORVASTATIN 20 MG TAB PO SCH (08:32)
[2019-11-10] MEDS: ENOXAPARIN 40 MG/0.4 ML SYRINGE (J1650) SC SCH (08:32)
[2019-11-10] MEDS: CIPRODEX OTIC SUSP 7.5ML AD SCH (08:34)
--- NOTE | 2019-11-10 21:35 | DSES ---
DATE OF ADMISSION: 11/07/2019 DATE OF DISCHARGE: 11/10/2019 PRINCIPAL DIAGNOSIS: Vasovagal syncope with physiologic bradycardia. HISTORY: Fatuma Francois has dumping syndrome from her gastric bypass and passes out periodically from this. She was admitted to rule out significant arrhythmias. HOSPITAL COURSE: She was on telemetry for 48 hours with no significant arrhythmias. She has physiologic bradycardia when she is sleeping. Heart rates go as low as 45, but as sinus bradycardia. She had no atrioventricular (AV) block or other significant arrhythmias. On day of discharge, she resting comfortably, eager to go home. She has a nuclear stress test with Dr. Barreto scheduled for tomorrow. PHYSICAL EXAMINATION: 128/75, pulse is 45 while sleeping, 78 when awake, respiratory rate 15, 99% oxygen saturation. She is alert and conversant, no distress. LUNGS: Clear. HEART: Regular rhythm. ABDOMEN: Soft, nontender. No peripheral edema. LABORATORY DATA: White count 5.3, hemoglobin 12.9, platelets 206. Sodium 141, potassium 4.4, BUN 15, creatinine 0.7, glucose 84. TSH normal. She had troponins drawn. They were all negative. She had a cervical spine film done, apparently related to her fall. She has osteopenia, mild multilevel spondylosis, but no significant spinal canal or neuro foraminal stenosis and no fractures. DISPOSITION: She is discharge home in improved and stable condition. She will follow up with primary care provider, Millicent Fletcher, [facility] in a week. She has a nuclear stress test with Dr. Barreto, [facility], tomorrow. Her diet is as tolerated. Activity as tolerated. MEDICATIONS: Unchanged from admission: - atorvastatin 20 mg daily - Ciprodex otic suspension 4 drops in her affected ear daily - diclofenac gel four times a day - duloxetine 60 mg daily I am stopping the Chantix, as she is on duloxetine and had concerns about those two medicines being taken together. She is advised to quit smoking. At the time of this dictation, no pending labs. edited: 11/11/2019 0719 deana MIRAMONTES
== END 2019-11-10 11:00 | disposition home or self-care (01) | DRG 201 ==
LOC: M ED 14:52 → M ED INP 20:01 → ENRESERVTM 23:33 → ENRESERVDT 23:33 → M PCU 11-08 00:24 → M MSPAV 11-08 20:40
PROVIDERS: ADMIT Internal Medicine; ATTEND Family Medicine
DX: R00.1 Bradycardia, unspecified (principal); K91.1 Postgastric surgery syndromes; E66.9 Obesity, unspecified; Z68.39 Body mass index [BMI] 39.0-39.9, adult; R55 Syncope and collapse; Z79.899 Other long term (current) drug therapy; Z88.8 Allergy status to other drugs, medicaments and biological substances; E78.5 Hyperlipidemia, unspecified; H60.90 Unspecified otitis externa, unspecified ear; Z98.84 Bariatric surgery status

== ENCOUNTER → 2020-02-04 | Outpatient (REF) | payer OTHER ==
[~2020-02-04] MED LIST changes: +ATOR1TAB21 PO; +CHAN1PAK11 PO; +CIPRODEX AD; +DICL1GEL3 TOP; +DULO1CAP6 PO
[2020-02-04 14:09] LABS: BASO # 0.1 10^3/uL (0.0-0.2); BASO % 0.8 % (0.0-1.0); EOS # 0.2 10^3/uL (0.0-0.5); EOS % 3.7 % (0.0-3.0); HEMATOCRIT 42.8 % (36.0-47.0); LYMPH # 2.6 10^3/uL (1.5-5.0); LYMPH % 43.1 % (24.0-44.0); MEAN CORPUSCULAR HGB CONC 32.7 g/dl (32.0-36.5); MEAN CORPUSCULAR VOLUME 91.6 fl (80.0-96.0); MONO # 0.4 10^3/uL (0.0-0.8); NEUTROPHILS # 2.7 10^3/uL (1.5-8.5); NEUTROPHILS % 45.2 % (36.0-66.0); PLATELET COUNT, AUTOMATED 226 10^3/uL (150-450); RED BLOOD COUNT 4.67 10^6/uL (4.00-5.40)
[2020-02-04 14:30] LABS: HEMOGLOBIN A1c 5.7 %
[2020-02-04 14:39] LABS: ALBUMIN 3.7 GM/DL (3.2-5.2); ALT/SGPT 25 U/L (12-78); BILIRUBIN,TOTAL 0.3 MG/DL (0.2-1.0); BLOOD UREA NITROGEN 11 MG/DL (7-18); CARBON DIOXIDE LEVEL 30 MEQ/L (21-32); CHLORIDE LEVEL 107 MEQ/L (98-107); CHOLESTEROL LEVEL 206 MG/DL (<200); CHOLESTEROL RISK RATIO 3.377 (<5); CREATININE FOR GFR 0.72 MG/DL (0.55-1.30); FREE T4 1.13 NG/DL (0.76-1.46); GLOMERULAR FILTRATION RATE > 60.0 (>58); GLUCOSE, FASTING 85 MG/DL (70-100); HDL CHOLESTEROL 61 MG/DL (>40); LDL CHOLESTEROL 132 MG/DL (<100); NON-HDL-C 145 MG/DL; POTASSIUM SERUM 4.3 MEQ/L (3.5-5.1); SODIUM LEVEL 139 MEQ/L (136-145); TRIGLYCERIDES LEVEL 65 MG/DL (<150)
[2020-02-04 14:40] LABS: TOTAL 25(OH) VITAMIN D 22.2 NG/ML (30.0-100.0)
== END ==
LOC: M LAB REF 12:28
PROVIDERS: ATTEND Nurse Practitioner Family
DX: F41.8 Other specified anxiety disorders (principal); E78.5 Hyperlipidemia, unspecified; R73.03 Prediabetes; R07.9 Chest pain, unspecified; F17.200 Nicotine dependence, unspecified, uncomplicated; Z13.9 Encounter for screening, unspecified

== ENCOUNTER 2020-02-22 09:52 | Emergency (ER) | payer OTHER ==
[~2020-02-22] VITALS: Ht 165.1 cm; Wt 104.5 kg
[~2020-02-22 09:52] MED LIST changes: +CIPR7.5D5 AD; -CIPRODEX AD
[2020-02-22] MEDS ORDERED: KETOROLAC 60MG 2ML VIAL IM ONE (10:30)
--- NOTE | 2020-02-22 10:54 | REP ---
CT study of the cervical spine without contrast: History: Injury in a fall. Neck pain. Technique: Helical scanning is acquired and overlapping 2 mm high resolution axial images were generated and reviewed at bone and soft tissue window settings. Coronal and sagittal multiplanar re-formations images are generated. CT findings: There is degenerative disc narrowing and anterior osteophyte formation at C5-6, and to a lesser extent at C4-5 and C6-7. There is no evidence of cervical spine element fracture. No skull base fracture is seen. Cervical vertebral body heights are preserved. Alignment is normal. Facet joints are normally aligned bilaterally at each cervical level on multiplanar re-formations images. There is no evidence of intraspinal or paraspinal hematoma. No extra vertebral abnormality is seen. Impression: Mild degenerative spondylosis changes and straightening. Otherwise negative CT study of the cervical spine without contrast. No fracture seen. Electronically Signed by Tate James MD 02/22/2020 10:45 A
--- NOTE | 2020-02-22 11:18 | REP ---
CT LUMBAR SPINE WITHOUT CONTRAST: HISTORY: Injury in a fall. Low back pain. Vertebral tenderness. TECHNIQUE: Helical scanning is acquired. 4 mm axial images are reformatted. Coronal and sagittal MPR images are generated. CT FINDINGS: Lumbar vertebral body heights are preserved. No fracture or collapse is seen. No sacral or posterior element fracture is seen. No paravertebral hematoma or intraspinal hematoma is appreciated. IMPRESSION: No fracture or other traumatic abnormality noted. There are minimal degenerative disc changes. Electronically Signed by Tate James MD 02/22/2020 01:04 P
[2020-02-22] MEDS ORDERED: diazePAM 5MG TABLET PO ONE (11:30)
[2020-02-22 11:43] VITALS: BP 127/72
== END 2020-02-22 11:49 | disposition home or self-care (01) ==
LOC: M ED 09:52
DX: S13.4XXA Sprain of ligaments of cervical spine, initial encounter (principal); W19.XXXA Unspecified fall, initial encounter; Y92.39 Other specified sports and athletic area as the place of occurrence of the external cause; Y93.9 Activity, unspecified; Y99.9 Unspecified external cause status; Z91.81 History of falling; Z88.8 Allergy status to other drugs, medicaments and biological substances; Z98.84 Bariatric surgery status; F17.218 Nicotine dependence, cigarettes, with other nicotine-induced disorders
CPT/HCPCS: 72125; 72131; 96372; 99283; J1885

== ENCOUNTER 2020-03-22 18:59 | Emergency (ER) | payer OTHER ==
[~2020-03-22] VITALS: Ht 165.1 cm; Wt 104.5 kg
[~2020-03-22 18:59] MED LIST changes: -CIPR7.5D5 AD; +CIPRODEX AD
[2020-03-22] MEDS ORDERED: HALOPERIDOL 5MG/ML VIAL (J1630 PER 1) IV ONE (19:15)
[2020-03-22] MEDS ORDERED: diphenhydrAMINE 50MG/ML VIAL (J1200) IV ONE (19:15)
[2020-03-22] MEDS ORDERED: NS 1,000 ML IV ONE (19:15)
[2020-03-22 19:45] LABS: BASO # 0.1 10^3/uL (0.0-0.2); BASO % 0.7 % (0.0-1.0); EOS # 0.2 10^3/uL (0.0-0.5); HEMATOCRIT 42.2 % (36.0-47.0); HEMOGLOBIN 13.8 g/dl (12.0-15.5); LYMPH # 2.7 10^3/uL (1.5-5.0); LYMPH % 36.7 % (24.0-44.0); MEAN CORPUSCULAR HEMOGLOBIN 29.3 pg (27.0-33.0); MEAN CORPUSCULAR HGB CONC 32.7 g/dl (32.0-36.5); MEAN CORPUSCULAR VOLUME 89.6 fl (80.0-96.0); MONO # 0.5 10^3/uL (0.0-0.8); MONO % 6.2 % (0.0-5.0); NEUTROPHILS # 3.9 10^3/uL (1.5-8.5); NEUTROPHILS % 53.1 % (36.0-66.0); PLATELET COUNT, AUTOMATED 212 10^3/uL (150-450); RED BLOOD COUNT 4.71 10^6/uL (4.00-5.40); WHITE BLOOD COUNT 7.3 10^3/uL (4.0-10.0)
[2020-03-22 20:10] LABS: ALBUMIN 3.7 GM/DL (3.2-5.2); ALT/SGPT 42 U/L (12-78); BILIRUBIN,DIRECT < 0.1 MG/DL (0.0-0.2); BILIRUBIN,TOTAL 0.2 MG/DL (0.2-1.0); LIPASE 125 U/L (73-393); TOTAL PROTEIN 7.3 GM/DL (6.4-8.2)
[2020-03-22 21:10] VITALS: BP 98/51
--- NOTE | 2020-03-23 08:19 | REP ---
Clinical: Epigastric and abdominal pain. Technique: Upright view of the chest with supine and upright views of the abdomen and pelvis. Findings: Frontal upright view of the chest demonstrates no acute cardiopulmonary process or free air below the diaphragm to suspect pneumoperitoneum. Supine and upright views of the abdomen and pelvis demonstrate nonspecific bowel gas pattern without obstruction or perforation. No organomegaly. No abnormal calcifications. Skeletal structures normal for age. Impression: Nonspecific bowel gas pattern. Electronically Signed by Chetan Blank MD 03/23/2020 08:11 A
== END 2020-03-22 21:15 | disposition home or self-care (01) ==
LOC: EDBD 18:59 → M ED 18:59
DX: R11.10 Vomiting, unspecified (principal); I10 Essential (primary) hypertension; F17.210 Nicotine dependence, cigarettes, uncomplicated; Z88.3 Allergy status to other anti-infective agents; Z79.899 Other long term (current) drug therapy
CPT/HCPCS: 74021; 80047; 80076; 83690; 85025; 96361; 96374; 96375; 99284; J1200; J1630

== ENCOUNTER → 2020-03-26 | Outpatient (CLI) | payer OTHER | LOC: M LABSMTC 10:03 | PROVIDERS: ATTEND Physical Medicine & Rehabilitation | DX: Z11.59 Encounter for screening for other viral diseases (principal) ==

== ENCOUNTER → 2020-04-02 | Outpatient (CLI) | payer OTHER | LOC: M LAB 08:48 | PROVIDERS: ATTEND Physical Medicine & Rehabilitation | DX: M50.320 Other cervical disc degeneration, mid-cervical region, unspecified level (principal) ==

== ENCOUNTER → 2020-05-06 | Outpatient (REF) | payer OTHER, MEDICAID ==
[2020-05-06 15:09] LABS: BASO # 0.1 10^3/uL (0.0-0.2); BASO % 0.8 % (0.0-1.0); EOS # 0.3 10^3/uL (0.0-0.5); EOS % 4.1 % (0.0-3.0); HEMATOCRIT 45.3 % (36.0-47.0); HEMOGLOBIN 14.8 g/dl (12.0-15.5); LYMPH # 1.8 10^3/uL (1.5-5.0); LYMPH % 28.7 % (24.0-44.0); MEAN CORPUSCULAR HEMOGLOBIN 29.9 pg (27.0-33.0); MEAN CORPUSCULAR HGB CONC 32.7 g/dl (32.0-36.5); MEAN CORPUSCULAR VOLUME 91.5 fl (80.0-96.0); MONO # 0.4 10^3/uL (0.0-0.8); MONO % 6.6 % (0.0-5.0); NEUTROPHILS # 3.7 10^3/uL (1.5-8.5); NEUTROPHILS % 59.3 % (36.0-66.0); PLATELET COUNT, AUTOMATED 246 10^3/uL (150-450); RED BLOOD COUNT 4.95 10^6/uL (4.00-5.40); WHITE BLOOD COUNT 6.2 10^3/uL (4.0-10.0)
[2020-05-06 15:31] LABS: ALBUMIN 4.1 GM/DL (3.2-5.2); ALT/SGPT 42 U/L (12-78); BILIRUBIN,TOTAL 0.4 MG/DL (0.2-1.0); BLOOD UREA NITROGEN 14 MG/DL (7-18); CALCIUM LEVEL 9.6 MG/DL (8.5-10.1); CARBON DIOXIDE LEVEL 27 MEQ/L (21-32); CHLORIDE LEVEL 106 MEQ/L (98-107); CHOLESTEROL LEVEL 240 MG/DL (<200); CHOLESTEROL RISK RATIO 4.137 (<5); CREATININE FOR GFR 0.81 MG/DL (0.55-1.30); FREE T4 1.09 NG/DL (0.76-1.46); GLOMERULAR FILTRATION RATE > 60.0 (>58); GLUCOSE, FASTING 87 MG/DL (70-100); HDL CHOLESTEROL 58 MG/DL (>40); LDL CHOLESTEROL 162 MG/DL (<100); NON-HDL-C 182 MG/DL; POTASSIUM SERUM 4.1 MEQ/L (3.5-5.1); SODIUM LEVEL 140 MEQ/L (136-145); TOTAL PROTEIN 7.5 GM/DL (6.4-8.2); TRIGLYCERIDES LEVEL 101 MG/DL (<150)
[2020-05-06 16:31] LABS: HEMOGLOBIN A1c 5.7 %
== END ==
LOC: M LAB REF 12:12
PROVIDERS: ATTEND Nurse Practitioner Family
DX: E78.5 Hyperlipidemia, unspecified (principal); R73.03 Prediabetes; R07.9 Chest pain, unspecified; F17.200 Nicotine dependence, unspecified, uncomplicated; N95.1 Menopausal and female climacteric states; R45.86 Emotional lability; Z13.9 Encounter for screening, unspecified

== ENCOUNTER 2020-08-29 17:06 | Emergency (ER) | payer MEDICAID, OTHER ==
[~2020-08-29] VITALS: Ht 167.6 cm; Wt 108.2 kg
[2020-08-29] MEDS ORDERED: NYST1POW9 PO (17:30)
[2020-08-29] MEDS ORDERED: TIZA4TAB4 PO (17:30)
[2020-08-29] MEDS ORDERED: NORT10CA2 PO (17:30)
[2020-08-29] MEDS ORDERED: PREG100C PO (17:30)
[2020-08-29] MEDS ORDERED: PERCOCET 5MG/325MG TAB PO ONE (17:45)
--- NOTE | 2020-08-29 18:37 | REPVR ---
PROCEDURE INFORMATION: Exam: CT Cervical Spine Without Contrast Exam date and time: 08/29/2020 5:52 PM Age: 50 years old Clinical indication: Injury or trauma; Fall; Blunt trauma; Additional info: Fell TECHNIQUE: Imaging protocol: Computed tomography images of the cervical spine without contrast. Radiation optimization: All CT scans at this facility use at least one of these dose optimization techniques: automated exposure control; mA and/or kV adjustment per patient size (includes targeted exams where dose is matched to clinical indication); or iterative reconstruction. COMPARISON: CT Spine,cervical w/o contrast 02/22/2020 10:26 AM FINDINGS: Vertebrae: No acute fracture. No subluxation. There is straightening of the normal cervical lordosis. Degenerative disc disease is more pronounced at C5-C6. There is multilevel uncovertebral joint hypertrophy. C2-C3: No significant disc protrusion. No severe spinal canal stenosis. No significant neural foraminal narrowing. C3-C4: No significant disc protrusion. No severe spinal canal stenosis. No significant neural foraminal narrowing. C4-C5: No significant disc protrusion. No severe spinal canal stenosis. No significant neural foraminal narrowing. C5-C6: Unchanged large broad-based disc bulge which is more pronounced on the right and extends farther lateral on the right again present resulting in moderate central canal narrowing. There is at least mild bilateral neural foraminal narrowing at this level. C6-C7: No significant disc protrusion. No severe spinal canal stenosis. No significant neural foraminal narrowing. C7-T1: No significant disc protrusion. No severe spinal canal stenosis. No significant neural foraminal narrowing. Soft tissues: There is no precervical soft tissue swelling. Esophagus: The lower cervical and upper thoracic esophagus is air-filled and slightly patulous. Lymph nodes: There are multiple small cervical chain lymph nodes bilaterally. Lungs: Included lung apices are clear. IMPRESSION: 1. No acute fracture. 2. Unchanged large broad-based disc bulge which is more pronounced on the right at C5-C6 resulting in moderate central canal narrowing, and at least mild bilateral neural foraminal narrowing at this level. 3. Straightening of the normal cervical lordosis which can be seen with muscle spasm. No subluxation. Electronically signed by: Yoselyn Gonzalez On 08/29/2020 18:37:12 PM
[2020-08-29] MEDS ORDERED: CYCLOBENZAPRINE 10MG TABLET PO ONE (19:00)
--- NOTE | 2020-08-29 19:25 | REP ---
INDICATION: fell COMPARISON: None. TECHNIQUE: Internal rotation, external rotation, and Y view. FINDINGS: No acute fracture or dislocation. The acromioclavicular and glenohumeral joints are intact. No periarticular calcifications or degenerative changes are appreciated. Sub acromial space is normal. Surrounding soft tissues are unremarkable. IMPRESSION: Normal age-appropriate right shoulder radiographs. <Electronically signed by Chetan Blank > 08/29/201920
[2020-08-29] MEDS ORDERED: CYCL-707 PO (19:41)
[2020-08-29 19:46] VITALS: BP 121/80
== END 2020-08-29 19:49 | disposition home or self-care (01) ==
LOC: M ED 17:06
DX: S16.1XXA Strain of muscle, fascia and tendon at neck level, initial encounter (principal); W00.0XXA Fall on same level due to ice and snow, initial encounter; Y92.9 Unspecified place or not applicable; Y93.9 Activity, unspecified; Y99.9 Unspecified external cause status; E11.9 Type 2 diabetes mellitus without complications; E78.5 Hyperlipidemia, unspecified; F17.200 Nicotine dependence, unspecified, uncomplicated; I10 Essential (primary) hypertension; I25.2 Old myocardial infarction; Z79.899 Other long term (current) drug therapy; Z88.8 Allergy status to other drugs, medicaments and biological substances; Z98.84 Bariatric surgery status

== ENCOUNTER → 2020-10-13 | Outpatient (REF) | payer OTHER ==
[~2020-10-13] MED LIST changes: +CIPR7.5D5 AD; -CIPRODEX AD; +CYCL-707 PO; +NORT10CA2 PO; +NYST1POW9 PO; +PREG100C PO; +TIZA4TAB4 PO
[2020-10-13 14:23] LABS: ALT/SGPT 30 U/L (12-78); BILIRUBIN,TOTAL 0.5 MG/DL (0.2-1.0); BLOOD UREA NITROGEN 18 MG/DL (7-18); CALCIUM LEVEL 9.5 MG/DL (8.5-10.1); CARBON DIOXIDE LEVEL 31 MEQ/L (21-32); CHLORIDE LEVEL 106 MEQ/L (98-107); CHOLESTEROL LEVEL 146 MG/DL (<200); CREATININE FOR GFR 0.88 MG/DL (0.55-1.30); GLOMERULAR FILTRATION RATE > 60.0 (>58); GLUCOSE, FASTING 96 MG/DL (70-100); POTASSIUM SERUM 4.6 MEQ/L (3.5-5.1); SODIUM LEVEL 141 MEQ/L (136-145); TRIGLYCERIDES LEVEL 55 MG/DL (<150)
[2020-10-13 14:24] LABS: ALBUMIN 3.9 GM/DL (3.2-5.2); CHOLESTEROL RISK RATIO 2.147 (<5); HDL CHOLESTEROL 68 MG/DL (>40); LDL CHOLESTEROL 67 MG/DL (<100); NON-HDL-C 78 MG/DL; TOTAL PROTEIN 7.2 GM/DL (6.4-8.2)
[2020-10-13 14:39] LABS: HEMOGLOBIN A1c 5.5 %
== END ==
LOC: M LAB REF 12:13
PROVIDERS: ATTEND Family Medicine Addiction Medicine
DX: R73.03 Prediabetes (principal)

== ENCOUNTER → 2021-02-08 | Outpatient (REF) | payer OTHER ==
[2021-02-08 17:52] LABS: BASO # 0.1 10^3/uL (0.0-0.2); BASO % 1.1 % (0.0-1.0); EOS # 0.2 10^3/uL (0.0-0.5); HEMATOCRIT 41.9 % (36.0-47.0); HEMOGLOBIN 13.4 g/dl (12.0-15.5); LYMPH # 2.4 10^3/uL (1.5-5.0); LYMPH % 38.4 % (24.0-44.0); MEAN CORPUSCULAR HEMOGLOBIN 29.5 pg (27.0-33.0); MEAN CORPUSCULAR VOLUME 92.3 fl (80.0-96.0); MONO # 0.5 10^3/uL (0.0-0.8); MONO % 7.7 % (2.0-8.0); NEUTROPHILS # 3.1 10^3/uL (1.5-8.5); NEUTROPHILS % 49.6 % (36.0-66.0); PLATELET COUNT, AUTOMATED 213 10^3/uL (150-450); RED BLOOD COUNT 4.54 10^6/uL (4.00-5.40); WHITE BLOOD COUNT 6.3 10^3/uL (4.0-10.0)
[2021-02-08 19:30] LABS: ALBUMIN 3.5 GM/DL (3.2-5.2); ALT/SGPT 32 U/L (12-78); BILIRUBIN,TOTAL 0.4 MG/DL (0.2-1.0); BLOOD UREA NITROGEN 17 MG/DL (7-18); CALCIUM LEVEL 9.4 MG/DL (8.5-10.1); CARBON DIOXIDE LEVEL 27 MEQ/L (21-32); CHLORIDE LEVEL 107 MEQ/L (98-107); CHOLESTEROL LEVEL 142 MG/DL (<200); CHOLESTEROL RISK RATIO 2.253 (<5); CREATININE FOR GFR 0.67 MG/DL (0.55-1.30); GLOMERULAR FILTRATION RATE > 60.0 (>51); GLUCOSE, FASTING 86 MG/DL (70-100); HDL CHOLESTEROL 63 MG/DL (>40); LDL CHOLESTEROL 67 MG/DL (<100); NON-HDL-C 79 MG/DL; POTASSIUM SERUM 4.8 MEQ/L (3.5-5.1); SODIUM LEVEL 141 MEQ/L (136-145); TOTAL PROTEIN 6.6 GM/DL (6.4-8.2); TRIGLYCERIDES LEVEL 62 MG/DL (<150)
[2021-02-08 20:08] LABS: HEMOGLOBIN A1c 5.5 %
== END ==
LOC: M LAB REF 16:32
PROVIDERS: ATTEND Nurse Practitioner Family
DX: E78.5 Hyperlipidemia, unspecified (principal); R73.03 Prediabetes; F17.200 Nicotine dependence, unspecified, uncomplicated; G89.29 Other chronic pain

== ENCOUNTER 2021-03-09 20:14 | Emergency (ER) | payer OTHER ==
[~2021-03-09] VITALS: Ht 165.1 cm; Wt 108.2 kg
[2021-03-09] MEDS ORDERED: ATOR1TAB21 PO (20:59)
[2021-03-09] MEDS ORDERED: KETOROLAC 60MG 2ML VIAL IM ONE (23:15)
[2021-03-09] MEDS ORDERED: diazePAM 10MG/2ML SYRINGE (J3360 PER 5MG) IM ONE (23:15)
[2021-03-09] MEDS ORDERED: NAPR-837 PO (23:35)
[2021-03-09] MEDS ORDERED: LIDO1.1P TOP (23:35)
[2021-03-09 23:51] VITALS: BP 131/61
[2021-03-10] MEDS ORDERED: OXYCODONE/APAP 5MG/325MG(BULK FOR ED) 1 TABLET PO ONE (00:15)
== END 2021-03-10 00:31 | disposition home or self-care (01) ==
LOC: M ED 20:14
DX: M54.5 Low back pain (principal); G89.29 Other chronic pain; I10 Essential (primary) hypertension; Z98.84 Bariatric surgery status; F17.200 Nicotine dependence, unspecified, uncomplicated
CPT/HCPCS: 96372; 99283; J1885; J3360

== ENCOUNTER → 2021-08-12 | Outpatient (CLI) | payer OTHER ==
[~2021-08-12] MED LIST changes: +LIDO1.1P TOP
--- NOTE | 2021-08-16 15:04 | REP ---
INDICATION: CERVICAL DISC DEGERATION. COMPARISON: 03/18/2020 and 04/02/2020 TECHNIQUE: Sagittal T1 and T2. Axial T2 and [id number]. FINDINGS: The craniovertebral junction is within normal limits. There is no cerebellar tonsillar ectopia. No abnormal signal is seen in the imaged portion of the spinal cord. Once again, there is disc space narrowing at C5-6 seen in conjunction with posterior spondylosis and a broad-based annular bulge. Once again, this is seen to cause moderate to severe central canal stenosis with obliteration of the anterior thecal sac along with a flattening and straightening of the anterior surface of the spinal cord status quo. No new discogenic changes identified at that level. At C4-5 there is mild left foraminal narrowing which has developed since the last exam. This is secondary to degenerative facet and uncovertebral joint changes. All other levels are stable showing no acute disc extrusion, foraminal narrowing, or significant central canal stenosis. IMPRESSION: Once again, there are discogenic changes and related findings seen particularly at C5-6 and C4-5 as described above. <Electronically signed by Yossi Stoll > 08/16/21 1500
== END ==
LOC: M PLAIMG 15:26
PROVIDERS: ATTEND Physician Assistant Surgical
DX: M50.320 Other cervical disc degeneration, mid-cervical region, unspecified level (principal)

== ENCOUNTER → 2021-10-05 | Outpatient (CLI) | payer OTHER ==
[~2021-10-05] MED LIST changes: +TIZA10TA PO; -TIZA4TAB4 PO
== END ==
LOC: M LAB 11:19
PROVIDERS: ATTEND Physical Medicine & Rehabilitation
DX: M47.22 Other spondylosis with radiculopathy, cervical region (principal)

== ENCOUNTER → 2022-09-14 | Outpatient (REF) | payer MEDICARE, OTHER ==
[2022-09-14 13:55] LABS: CHOLESTEROL RISK RATIO 3.35 (<5); HDL CHOLESTEROL 56.6 MG/DL (>40); LDL CHOLESTEROL 119.6 MG/DL (<100)
== END ==
LOC: M LAB REF 12:38
PROVIDERS: ATTEND Nurse Practitioner Family
DX: E78.5 Hyperlipidemia, unspecified (principal); F17.200 Nicotine dependence, unspecified, uncomplicated; E66.9 Obesity, unspecified; E55.9 Vitamin D deficiency, unspecified

== ENCOUNTER → 2022-11-24 | Outpatient (CLI) | payer MEDICARE, OTHER | LOC: M LAB 07:49 | PROVIDERS: ATTEND Nurse Practitioner Family | DX: S89.91XD Unspecified injury of right lower leg, subsequent encounter (principal); Y93.9 Activity, unspecified; Y92.9 Unspecified place or not applicable ==

== ENCOUNTER → 2022-12-06 | Outpatient (CLI) | payer MEDICARE, OTHER | LOC: M WHC 09:38 | PROVIDERS: ATTEND Nurse Practitioner Family | DX: Z13.820 Encounter for screening for osteoporosis (principal) ==

== ENCOUNTER → 2023-01-09 | Outpatient (REF) | payer MEDICARE, OTHER ==
[2023-01-09 14:36] LABS: CHOLESTEROL RISK RATIO 1.95 (<5); HDL CHOLESTEROL 59.9 MG/DL (>40); LDL CHOLESTEROL 46.1 MG/DL (<100); NON-HDL-C 57.1 MG/DL
== END ==
LOC: M LAB REF 12:29
PROVIDERS: ATTEND Nurse Practitioner Family
DX: E78.5 Hyperlipidemia, unspecified (principal); F17.200 Nicotine dependence, unspecified, uncomplicated; E66.9 Obesity, unspecified; E55.9 Vitamin D deficiency, unspecified

== ENCOUNTER → 2023-04-25 | Outpatient (REF) | payer MEDICARE, OTHER ==
[~2023-04-25] MED LIST changes: +DICL100G10 TOP; -DICL1GEL3 TOP
[2023-04-25 13:16] LABS: BASO # 0.1 10^3/uL (0.0-0.2); BASO % 0.9 % (0.0-1.0); EOS # 0.2 10^3/uL (0.0-0.5); EOS % 4.1 % (0.0-3.0); HEMATOCRIT 41.8 % (36.0-47.0); HEMOGLOBIN 13.8 g/dl (12.0-15.5); LYMPH # 1.8 10^3/uL (1.5-5.0); LYMPH % 34.3 % (24.0-44.0); MEAN CORPUSCULAR HEMOGLOBIN 30.5 pg (27.0-33.0); MEAN CORPUSCULAR VOLUME 92.5 fl (80.0-96.0); MONO # 0.4 10^3/uL (0.0-0.8); MONO % 7.1 % (2.0-8.0); NEUTROPHILS # 2.9 10^3/uL (1.5-8.5); NEUTROPHILS % 53.6 % (36.0-66.0); PLATELET COUNT, AUTOMATED 208 10^3/uL (150-450); RED BLOOD COUNT 4.52 10^6/uL (4.00-5.40); WHITE BLOOD COUNT 5.3 10^3/uL (4.0-10.0)
[2023-04-25 13:20] LABS: ALBUMIN 3.7 G/DL (3.2-5.2); ALKALINE PHOSPHATASE 126 U/L (46-116); ALT/SGPT 22 U/L (7.0-40); AST/SGOT 16 U/L (<34); BILIRUBIN,TOTAL 0.4 MG/DL (0.3-1.2); BLOOD UREA NITROGEN 11 MG/DL (9-23); CALCIUM LEVEL 9.3 MG/DL (8.5-10.1); CARBON DIOXIDE LEVEL 28 MMOL/L (20-31); CHLORIDE LEVEL 106 MMOL/L (98-107); CREATININE FOR GFR 0.78 MG/DL (0.55-1.30); GLOMERULAR FILTRATION RATE > 60.0 (>51); GLUCOSE, FASTING 89 MG/DL (60-100); POTASSIUM SERUM 4.7 MMOL/L (3.5-5.1); SODIUM LEVEL 141 MMOL/L (136-145); TOTAL PROTEIN 6.6 G/DL (5.7-8.2)
[2023-04-25 13:22] LABS: TOTAL 25(OH) VITAMIN D 28.9 NG/ML (20.0-100.0)
[2023-04-25 13:23] LABS: THYROID STIMULATING HORMONE 1.649 uIU/ML (0.55-4.78)
[2023-04-25 13:29] LABS: HEMOGLOBIN A1c 5.2 % (4.0-6.0)
== END ==
LOC: M LAB REF 12:33
PROVIDERS: ATTEND Nurse Practitioner Family
DX: Z13.228 Encounter for screening for other metabolic disorders (principal)

== ENCOUNTER 2023-06-06 21:01 | Emergency (ER) | payer MEDICARE, OTHER ==
[~2023-06-06] VITALS: Ht 167.6 cm; Wt 108.6 kg
[~2023-06-06 21:01] MED LIST changes: -PREG100C PO; +PREG100C2 PO
[2023-06-06] MEDS ORDERED: KETOROLAC 30 MG/ML 1ML VIAL IV ONE (23:30)
[2023-06-06] MEDS ORDERED: METOCLOPRAMIDE INJ 10MG/2ML VIAL IV ONE (23:30)
[2023-06-06] MEDS ORDERED: NS 1,000 ML IV ONE (23:30)
[2023-06-06] MEDS ORDERED: diphenhydrAMINE 50MG/ML VIAL IV ONE (23:30)
[2023-06-06 23:43] LABS: BASO % 0.6 % (0.0-1.0); EOS # 0.1 10^3/uL (0.0-0.5); HEMATOCRIT 40.6 % (36.0-47.0); HEMOGLOBIN 13.5 g/dl (12.0-15.5); LYMPH # 0.7 10^3/uL (1.5-5.0); LYMPH % 14.6 % (24.0-44.0); MEAN CORPUSCULAR HEMOGLOBIN 30.3 pg (27.0-33.0); MEAN CORPUSCULAR HGB CONC 33.3 g/dl (32.0-36.5); MEAN CORPUSCULAR VOLUME 91.2 fl (80.0-96.0); MONO # 0.7 10^3/uL (0.0-0.8); MONO % 13.8 % (2.0-8.0); NEUTROPHILS # 3.5 10^3/uL (1.5-8.5); NEUTROPHILS % 69.8 % (36.0-66.0); PLATELET COUNT, AUTOMATED 169 10^3/uL (150-450); RED BLOOD COUNT 4.45 10^6/uL (4.00-5.40)
[2023-06-06 23:57] LABS: ALBUMIN 3.8 G/DL (3.2-5.2); ALKALINE PHOSPHATASE 125 U/L (46-116); ALT/SGPT 26 U/L (7.0-40); AST/SGOT 19 U/L (<34); BILIRUBIN,TOTAL 0.3 MG/DL (0.3-1.2); BLOOD UREA NITROGEN 12 MG/DL (9-23); CALCIUM LEVEL 8.9 MG/DL (8.5-10.1); CARBON DIOXIDE LEVEL 25 MMOL/L (20-31); CHLORIDE LEVEL 107 MMOL/L (98-107); GLOMERULAR FILTRATION RATE > 60.0 (>51); GLUCOSE, FASTING 109 MG/DL (60-100); SODIUM LEVEL 138 MMOL/L (136-145); TOTAL PROTEIN 6.6 G/DL (5.7-8.2)
[2023-06-07 01:22] LABS: CK-MB VALUE MASS < 1.0 NG/ML (<3.6)
[2023-06-07 01:24] LABS: CPK CREATINE PHOSPHOKINASE 88 U/L (34-145); MB/CK RELATIVE INDEX 1.13 (< OR =4)
[2023-06-07] MEDS ORDERED: NIRMATRELVIR/RITONAVIR CO-PACK (EMERGENCY USE AUTH) PO SCH ×2 (02:00→09:00)
[2023-06-07 02:16] VITALS: BP 128/78; TEMP 98.8; O2SAT 98
== END 2023-06-07 02:18 | disposition home or self-care (01) ==
LOC: M ED 21:01
DX: U07.1 COVID-19 (principal); F17.200 Nicotine dependence, unspecified, uncomplicated; Z88.8 Allergy status to other drugs, medicaments and biological substances
CPT/HCPCS: 71045; 80053; 82550; 82553; 83605; 84484; 85025; 87040; 87486; 87581; 87633; 87798; 93005; 93041; 96361; 96374; 96375; 99284; J1200; J1885; J2765

== ENCOUNTER 2023-10-27 18:56 | Emergency (ER) | payer OTHER, MEDICARE ==
[~2023-10-27] VITALS: Ht 167.6 cm; Wt 112.2 kg
[2023-10-28] MEDS: diazePAM 10MG/2ML SYRINGE IM ONE (01:12)
[2023-10-28] MEDS: predniSONE 20 MG TAB PO ONE (01:12)
[2023-10-28] MEDS: ANEXSIA, NORCO 7.5MG/325MG TABLET(HYDROCODONE/APAP) PO ONE (02:06)
[2023-10-28] MEDS: HYDROMORPHONE HCL 0.5 MG/ 0.5 ML SYRINGE IV ONE (03:16)
[2023-10-28] MEDS ORDERED: VALI5TAB PO (05:47)
[2023-10-28] MEDS ORDERED: MEDR4PAK PO (05:49)
[2023-10-28 06:02] VITALS: BP 118/78; TEMP 98.7; O2SAT 98
== END 2023-10-28 06:04 | disposition home or self-care (01) ==
LOC: M ED 18:56
DX: S13.4XXA Sprain of ligaments of cervical spine, initial encounter (principal); E78.5 Hyperlipidemia, unspecified; F32.A Depression, unspecified; Z98.84 Bariatric surgery status; Z88.8 Allergy status to other drugs, medicaments and biological substances; Z79.02 Long term (current) use of antithrombotics/antiplatelets; Z79.1 Long term (current) use of non-steroidal anti-inflammatories (NSAID); Z79.891 Long term (current) use of opiate analgesic; Z79.899 Other long term (current) drug therapy; Y92.9 Unspecified place or not applicable; Y93.9 Activity, unspecified; Y99.9 Unspecified external cause status
CPT/HCPCS: 71250; 72125; 96372; 96374; 99284; J1170; J3360; J7512

== ENCOUNTER → 2023-11-02 | Outpatient (CLI) | payer OTHER | LOC: M PLALAB 12:00 | PROVIDERS: ATTEND Physical Medicine & Rehabilitation | DX: M47.892 Other spondylosis, cervical region (principal) ==

== ENCOUNTER → 2024-01-19 | Outpatient (CLI) | payer OTHER ==
[2024-01-19 10:37] LABS: ALBUMIN 3.7 G/DL (3.2-5.2); ALKALINE PHOSPHATASE 129 U/L (46-116); ALT/SGPT 23 U/L (7.0-40); AST/SGOT 14 U/L (<34); BILIRUBIN,TOTAL 0.4 MG/DL (0.3-1.2); BLOOD UREA NITROGEN 13 MG/DL (9-23); CALCIUM LEVEL 9.3 MG/DL (8.5-10.1); CARBON DIOXIDE LEVEL 28 MMOL/L (20-31); CHLORIDE LEVEL 109 MMOL/L (98-107); CHOLESTEROL LEVEL 115 MG/DL (<200); CHOLESTEROL RISK RATIO 1.96 (<5); CREATININE FOR GFR 0.85 MG/DL (0.55-1.30); GLOMERULAR FILTRATION RATE > 60.0 (>51); GLUCOSE, FASTING 88 MG/DL (60-100); HDL CHOLESTEROL 58.5 MG/DL (>40); LDL CHOLESTEROL 44.5 MG/DL (<100); NON-HDL-C 56.5 MG/DL; POTASSIUM SERUM 4.5 MMOL/L (3.5-5.1); SODIUM LEVEL 142 MMOL/L (136-145); TOTAL PROTEIN 6.6 G/DL (5.7-8.2); TRIGLYCERIDES LEVEL 60 MG/DL (<150)
== END ==
LOC: M LAB 09:01
PROVIDERS: ATTEND Physician Assistant
DX: R94.31 Abnormal electrocardiogram [ECG] [EKG] (principal)

== ENCOUNTER → 2024-02-15 | Outpatient (REF) | payer OTHER ==
[2024-02-15 12:25] LABS: BASO # 0.1 10^3/uL (0.0-0.2); BASO % 0.9 % (0.0-1.0); EOS # 0.2 10^3/uL (0.0-0.5); HEMATOCRIT 43.5 % (36.0-47.0); HEMOGLOBIN 14.6 g/dl (12.0-15.5); LYMPH # 2.1 10^3/uL (1.5-5.0); LYMPH % 39.3 % (24.0-44.0); MEAN CORPUSCULAR HEMOGLOBIN 29.8 pg (27.0-33.0); MEAN CORPUSCULAR HGB CONC 33.6 g/dl (32.0-36.5); MEAN CORPUSCULAR VOLUME 88.8 fl (80.0-96.0); MONO # 0.3 10^3/uL (0.0-0.8); NEUTROPHILS # 2.7 10^3/uL (1.5-8.5); NEUTROPHILS % 50.6 % (36.0-66.0); PLATELET COUNT, AUTOMATED 232 10^3/uL (150-450); WHITE BLOOD COUNT 5.3 10^3/uL (4.0-10.0)
== END ==
LOC: M LAB REF 11:32
PROVIDERS: ATTEND Nurse Practitioner Family
DX: E66.9 Obesity, unspecified (principal)

== ENCOUNTER 2024-03-25 18:07 | Emergency (ER) | payer MEDICARE, OTHER ==
[~2024-03-25] VITALS: Ht 167.6 cm; Wt 108.6 kg
[2024-03-25 21:48] VITALS: BP 123/64; TEMP 97.1; O2SAT 99
== END 2024-03-25 21:56 | disposition home or self-care (01) ==
LOC: M ED 18:07
DX: S93.505A Unspecified sprain of left lesser toe(s), initial encounter (principal); W22.09XA Striking against other stationary object, initial encounter; Y92.009 Unspecified place in unspecified non-institutional (private) residence as the place of occurrence of the external cause; Y93.9 Activity, unspecified; Y99.9 Unspecified external cause status; E78.5 Hyperlipidemia, unspecified; J45.909 Unspecified asthma, uncomplicated; K21.9 Gastro-esophageal reflux disease without esophagitis; E11.9 Type 2 diabetes mellitus without complications; R56.9 Unspecified convulsions; Z98.84 Bariatric surgery status; N17.9 Acute kidney failure, unspecified; K44.9 Diaphragmatic hernia without obstruction or gangrene; Z86.19 Personal history of other infectious and parasitic diseases; Z79.899 Other long term (current) drug therapy; Z88.8 Allergy status to other drugs, medicaments and biological substances

== ENCOUNTER → 2024-08-15 | Outpatient (CLI) | payer OTHER ==
[~2024-08-15] MED LIST changes: +NYST1POW3 PO; -NYST1POW9 PO
== END ==
LOC: M RAD 07:08
PROVIDERS: ATTEND Physician Assistant Surgical
DX: M47.22 Other spondylosis with radiculopathy, cervical region (principal); M48.02 Spinal stenosis, cervical region; M50.321 Other cervical disc degeneration at C4-C5 level; M50.322 Other cervical disc degeneration at C5-C6 level; M50.323 Other cervical disc degeneration at C6-C7 level

== ENCOUNTER → 2024-09-23 | Outpatient (CLI) | payer MEDICARE | LOC: M WHC 09:54 | PROVIDERS: ATTEND Nurse Practitioner Family | DX: Z12.31 Encounter for screening mammogram for malignant neoplasm of breast (principal) ==

== ENCOUNTER → 2025-06-24 | Outpatient (CLI) | payer MEDICARE ==
[~2025-06-24] MED LIST changes: +LIDO1ADH93 TOP; -LIDO5DIS41 TOP
[2025-06-24 14:18] LABS: PLATELET COUNT, AUTOMATED 285 10^3/uL (150-450)
[2025-06-24 14:51] LABS: ALT/SGPT 20.0 U/L (7.0-40); AST/SGOT 19.0 U/L (<34); CALCIUM LEVEL 9.7 MG/DL (8.5-10.1); CARBON DIOXIDE LEVEL 30.0 MMOL/L (20-31); CHLORIDE LEVEL 101.0 MMOL/L (98-107); CHOLESTEROL LEVEL 139.0 MG/DL (<200); CHOLESTEROL RISK RATIO 2.33 (<5); CREATININE FOR GFR 0.79 MG/DL (0.55-1.30); GLOMERULAR FILTRATION RATE 88.8 (>51); LDL CHOLESTEROL 66.6 MG/DL (<100); NON-HDL-C 79.4 MG/DL; POTASSIUM SERUM 5.1 MMOL/L (3.5-5.1); SODIUM LEVEL 141.0 MMOL/L (136-145); TRIGLYCERIDES LEVEL 64.0 MG/DL (<150)
== END ==
LOC: M PLALAB 12:06
PROVIDERS: ATTEND Physician Assistant
DX: Z01.818 Encounter for other preprocedural examination (principal); E78.00 Pure hypercholesterolemia, unspecified